=== PATIENT | male | born 1995 | race Caucasian/White ===

== ENCOUNTER 2019-03-11 09:28 | Emergency (ER) | payer OTHER ==
[2019-03-11 09:55] VITALS: RESP 18; TEMP 98
[2019-03-11] MEDS ORDERED: Acetaminophen-Codeine 300-30mg TAB PO STA (10:08)
--- NOTE | 2019-03-11 10:11 | ED ---
General Adult HPI - General Chief complaint: Fall Stated complaint: IHS-slip and fall Time Seen by Provider: 03/11/19 09:57 Source: patient, RN notes reviewed Mode of arrival: ambulatory Limitations: no limitations - History of Present Illness Initial comments: 23-year-old male with a past medical history of [place] presents to the emergency department for a chief complaint of right knee pain. Patient states that he was at work walking to put keys and a car lot when he slipped over a sheet of ice. States he he fell on his bent right knee. States that it is painful to flex and extend his knee. States he has a history of [place] and he fell on the area right where he usually has pain. Patient did take Motrin prior to arrival. Patient did drive himself here using his right leg. Denies any loss of sensation in the right foot.patient denies any other injury. Denies hitting his head. Denies any loss of consciousness. Patient has no other complaints at this time including shortness of breath, chest pain, abdominal pain, nausea or vomiting, headache, or visual changes. - Related Data Home Medications Medication Instructions Recorded Confirmed No Known Home Medications 08/18/14 01/01/16 Allergies Allergy/AdvReac Type Severity Reaction Status Date / Time No Known Allergies Allergy Verified 03/11/19 09:53 Review of Systems ROS Statement: Those systems with pertinent positive or pertinent negative responses have been documented in the HPI. ROS Other: All systems not noted in ROS Statement are negative. Past Medical History Past Medical History: Coronary Artery Disease (CAD) Additional Past Medical History / Comment(s): FATTY LIVER, concussion History of Any Multi-Drug Resistant Organisms: None Reported Past Surgical History: Ablation, EPS Past Psychological History: ADD/ADHD Smoking Status: Never smoker Past Alcohol Use History: None Reported Past Drug Use History: None Reported General Exam Limitations: no limitations General appearance: alert, in no apparent distress Head exam: Present: atraumatic, normocephalic, normal inspection Eye exam: Present: normal appearance ENT exam: Present: normal exam, mucous membranes moist Neck exam: Present: normal inspection, full ROM. Absent: tenderness, meningismus, lymphadenopathy Respiratory exam: Present: normal lung sounds bilaterally. Absent: respiratory distress, wheezes, rales, rhonchi, stridor Cardiovascular Exam: Present: regular rate, normal rhythm, normal heart sounds. Absent: systolic murmur, diastolic murmur, rubs, gallop, clicks Extremities exam: Present: tenderness (Patient has tenderness to the tibial tuberosity. No tenderness to the posterior aspect of the knee. No tenderness to the calf.), normal capillary refill (Refill less than 2 seconds, the pupils 2+ in the right lower extremity), other (normal skin appearance). Absent: full ROM (Patient has about 110 flexion of the right knee with full extension. Full extension does elicit pain. Flexion to this ankle does elicit pain as well.), pedal edema, joint swelling (no edema, or ecchymosis), calf tenderness Neurological exam: Present: alert Course Vital Signs 03/11/19 03/11/19 09:53 11:06 Temperature 98 F 98 F Pulse Rate 107 H 80 Respiratory 18 18 Rate Blood Pressure 154/98 147/98 O2 Sat by Pulse 99 98 Oximetry Medical Decision Making - Medical Decision Making 23-year-old male presents for right knee pain. HPI and physical exam as documented. Neurovascular status intact in the right lower extremity. X-ray of the right knee shows no acute fracture or dislocation. Patient ambulatory in the exam room. Patient's knee was wrapped with an Navid wrap. He was directed to follow up with primary care. He will return here visiting any worsening symptoms. Disposition Clinical Impression: Knee pain, right Disposition: HOME SELF-CARE Condition: Good Instructions (If sedation given, give patient instructions): Knee Pain (ED) Additional Instructions: Please take Motrin for pain. If pain is severe take Tylenol 3. Do not drive or operate machinery while taking Tylenol 3. Rest ice and elevate the right knee. Use Navid wrap as needed. Follow-up with orthopedics in the next 1-2 days. Give any worsening symptoms return to the emergency department. Is patient prescribed a controlled substance at d/c from ED?: No Referrals: Silverio Coffey MD [Primary Care Provider] - 1-2 days Mane Interiano MD [Medical Doctor] - 1-2 days Time of Disposition: 10:37
--- NOTE | 2019-03-11 10:31 | XR ---
EXAMINATION TYPE: XR knee 4V RT DATE OF EXAM: 03/11/2019 CLINICAL HISTORY: Pain from slip and fall injury. TECHNIQUE: Three views of the right knee are obtained. Four sunrise view. COMPARISON: Bilateral knee x-rays November 06, 2007. FINDINGS: There is no acute fracture/dislocation evident in right knee. The tri-compartment joint s paces appear within normal limits. Patellar articulation satisfactory on the sunrise view. Unfused a nterior tibial tuberosity noted with well-corticated defect. The overlying soft tissue appears unrema rkable. IMPRESSION: There is no acute fracture or dislocation in the right knee.
[2019-03-11] MEDS ORDERED: ACET/COD 300 MG/30 MG STARTER PACK 6 TAB BTL PO STA (10:38)
[2019-03-11 11:08] VITALS: BP 147/98; PULSE 80
== END 2019-03-11 11:06 | disposition home or self-care (01) ==
LOC: EC 09:28
DX: M25.561 Pain in right knee (principal); I25.10 Atherosclerotic heart disease of native coronary artery without angina pectoris; Z98.890 Other specified postprocedural states; W00.0XXA Fall on same level due to ice and snow, initial encounter; Y93.01 Activity, walking, marching and hiking; Y92.69 Other specified industrial and construction area as the place of occurrence of the external cause; Y99.0 Civilian activity done for income or pay
CPT/HCPCS: 99283